=== PATIENT | female | born 1990 | race African-American/Black ===

== ENCOUNTER 2022-06-14 09:22 | Emergency (ER) | payer MEDICAID ==
[2022-06-14 11:59] LABS: SARS-CoV-2 NAA Rapid Test Not Detected (NotDetected)
== END 2022-06-14 12:40 | disposition home or self-care (01) ==
LOC: CSHERS 09:22
DX: J11.1 Influenza due to unidentified influenza virus with other respiratory manifestations (principal); Z20.822 Contact with and (suspected) exposure to COVID-19
CPT/HCPCS: 99283